=== PATIENT | male | born 1970 | race Hispanic/Latino ===

== ENCOUNTER 2016-10-14 03:01 | Emergency (ER) | payer OTHER ==
--- NOTE | 2016-10-14 04:34 | ED PDOC ---
HPI: Wound Care - HPI Time Seen by Provider: 10/14/16 03:17 Chief Complaint (Nursing): Wound Check Chief Complaint (Provider): wound check History Per: Patient History Of Present Illness: 46 y/o male presents for wound check. Patient had excisional biopsy for basal cell carcinoma on back 12 hours ago; tonight noted bleeding from wound. Denies injury/trauma to area, pain to area. Past Medical History Reviewed: Historical Data, Nursing Documentation, Vital Signs Vital Signs: Last Vital Signs Temp 98.7 F 10/14/16 03:10 Pulse 95 H 10/14/16 03:45 Resp 18 10/14/16 03:45 BP 158/100 H 10/14/16 03:45 Pulse Ox 99 10/14/16 03:45 - Medical History PMH: No Chronic Diseases - Surgical History Surgical History: Tonsillectomy - Family History Family History: States: Unknown Family Hx - Allergies Allergies/Adverse Reactions: Allergies Allergy/AdvReac Type Severity Reaction Status Date / Time No Known Allergies Allergy Verified 10/14/16 03:12 Review of Systems ROS Statement: Except As Marked, All Systems Reviewed And Found Negative Skin: Positive for: Lesions (wound check back) Physical Exam - Reviewed Nursing Documentation Reviewed: Yes Vital Signs Reviewed: Yes - Physical Exam Appears: Positive for: Well, Non-toxic, No Acute Distress Skin: Positive for: Rash (horizontal incision site midline back, [address]. No active bleeding, wound drainage, surrounding edema or surrounding erythema noted ) Cardiovascular/Chest: Positive for: Regular Rate, Rhythm Respiratory: Positive for: Normal Breath Sounds - ECG O2 Sat by Pulse Oximetry: 99 - Progress ED Course And Treament: new bandaids placed over incision site; telfa/pressure gauze applied over bandaids. Patient educated on wound care. Advised to follow up Radiologist Physician as scheduled. Return to ED for worsening/concerning symptoms. Disposition - Clinical Impression Clinical Impression: Visit for wound check - Patient ED Disposition Is Patient to be Admitted: No Counseled Patient/Family Regarding: Diagnosis, Need For Followup - Disposition Disposition: Routine/Home Disposition Time: 03:57 Condition: STABLE Instructions: Acute Wound Care (ED)
[2016-10-14 04:39] VITALS: BP 158/100; PULSE 95; RESP 18; TEMP 98.7; O2SAT 99
== END 2016-10-14 03:47 | disposition home or self-care (01) ==
LOC: H.ER 03:01
DX: Z48.01 Encounter for change or removal of surgical wound dressing (principal); R21 Rash and other nonspecific skin eruption